=== PATIENT | female | born 1970 | race Caucasian/White ===

== ENCOUNTER 2020-02-14 09:28 | Outpatient (REF) | payer OTHER, SELFPAY | END 2020-02-14 09:29 | disposition home or self-care (01) | LOC: HO.HMGCLDS 09:28 | PROVIDERS: Visit Provider Internal Medicine | DX: Z20.828 Contact with and (suspected) exposure to other viral communicable diseases (principal) | CPT/HCPCS: C9803; U0003 ==

== ENCOUNTER → 2021-03-09 08:35 | Outpatient (BNVA) | payer OTHER, SELFPAY | PROVIDERS: PCP Internal Medicine; Referring Provider Internal Medicine; Visit Provider Nurse Practitioner Family | DX: Z12.11 Encounter for screening for malignant neoplasm of colon (principal) | CPT/HCPCS: 99202 ==

== ENCOUNTER 2021-03-10 08:22 | Outpatient (REF) | payer OTHER, SELFPAY ==
[2021-03-10 09:10] LABS: Hematocrit 40.1 % (37.0-47.0); Hemoglobin 13.1 g/dl (12.0-16.0); Mean Corpuscular HGB Conc 32.7 g/dl (31.0-35.0); Mean Corpuscular Hemoglobin 27.7 pg (27.0-33.0); Mean Corpuscular Volume 84.8 fL (80.0-98.0); Mean Platelet Volume 10.7 fL (9.4-12.3); Platelet Count 172 X10*3/uL (160-400); Red Blood Count 4.73 X10*6/uL (4.20-5.50); Red Cell Distribution Width 12.7 % (11.0-16.0); White Blood Count 3.2 X10*3/uL (4.8-10.8)
[2021-03-10 09:31] LABS: Alanine Aminotransferase 10 U/L (0-31); Albumin Level 4.2 g/dL (3.5-5.0); Alkaline Phosphatase 65 U/L (39-117); Anion Gap 11 (12-20); Aspartate Amino Transferase 13 U/L (5-31); Bilirubin Total 0.4 mg/dL (0.0-1.0); Blood Urea Nitrogen 12 mg/dL (9-16); Calcium 9.5 mg/dL (8.4-10.2); Carbon Dioxide 26 mmol/L (22-29); Chloride 108 mmol/L (96-108); Estimated Glomerular Filt Rate > 60; Glucose Random 104 mg/dL (60-115); Potassium 4.2 mmol/L (3.3-5.1); Sodium 141 mmol/L (135-145); Total Protein 6.8 g/dL (6.5-8.0)
== END 2021-03-10 08:23 | disposition home or self-care (01) ==
LOC: HO.LAB 08:22
PROVIDERS: PCP Internal Medicine; Visit Provider Nurse Practitioner Family
DX: Z12.11 Encounter for screening for malignant neoplasm of colon (principal)
CPT/HCPCS: 36415; 80053; 85027

== ENCOUNTER 2021-04-03 08:06 | Day surgery (SDC) | payer OTHER, SELFPAY ==
--- NOTE | 2021-04-02 09:50 | HO.ANESPROP2 ---
Documented by User: Vicki Zhu NP 04/04/21 15:09 HPI - Anesthesia Eval Consult details Narrative: 50yo F for Colonoscopy [facility] Past Medical History Medical History Hx of renal artery stenosis Family History Family History Father Parkinson disease Coronary artery disease Mother Breast CA Non Hodgkin's lymphoma Surgical History Surgical History Hx of section Hx of tubal ligation Social History Social History (Updated 03/09/21 @ 08:48 by Sindy Daly) Alcohol intake: current Alcohol intake frequency: holidays/special occasions only Patient Tobacco Use Status: Never used Tobacco Use of substances other than those prescribed or required for medical reasons: No Are you DNR?: No Advance Directives: No Advance Directives Information Provided: Yes Patient : No (tubal ligation) Meds Allergies Allergy/AdvReac Type Severity Reaction Status Date / Time morphine Allergy Unknown sensitivity Verified 03/09/21 08:46 Exam Exam Date and Time: April 02, 2021 0950 Pertinent Lab Results Pertinent Lab Results: Laboratory Tests 03/10/21 03/10/21 08:10 08:10 WBC 3.2 L Hgb 13.1 Hct 40.1 Plt Count 172 Sodium 141 Potassium 4.2 Chloride 108 Carbon Dioxide 26 BUN 12 Creatinine 0.79 Assessment and Plan Assessment Anesthesia Assessment: Chart Reviewed Documented by User: Serjio Hawkins MD 07/11/21 16:31 [facility] Past Medical History Medical History Hx of renal artery stenosis Functional capacity: independent ambulation Family History Family History Father Parkinson disease Coronary artery disease Mother Breast CA Non Hodgkin's lymphoma Family history of problems with anesthesia: No Surgical History Surgical History Hx of section Hx of tubal ligation History of Problems with Anesthesia: Yes (PONV) Social History Social History (Updated 03/09/21 @ 08:48 by Sindy Daly) Alcohol intake: current Alcohol intake frequency: holidays/special occasions only Patient Tobacco Use Status: Never used Tobacco Use of substances other than those prescribed or required for medical reasons: No Are you DNR?: No Advance Directives: No Advance Directives Information Provided: Yes Patient : No (tubal ligation) Meds Allergies Allergy/AdvReac Type Severity Reaction Status Date / Time morphine Allergy Unknown sensitivity Verified 03/09/21 08:46 Exam Airway Mallampati Class: II TM Dist: >3cm Neck ROM: Full Loose/Missing/Broken Teeth: Yes (Crowns and implants ) Heart: rrr Lungs: bl breath sounds Assessment and Plan Assessment Anesthesia Assessment: Anesthesia Plan Discussed Final Anesthetic Review Family History of Problems with Anesthesia: No History of Problems with Anesthesia: Yes (PONV) NPO: Yes ASA Class: II Final Preanesthetic Review: No Changes in Pt Med Stat, Meds/Allgs Chart Reviewed, Consent Obtained/Reviewed and Anes Risks/Benef Reviewed Patient Risk: Intermediate Procedure Risk: Intermediate Anesthetic Plan Anesthetic Plan: MAC: Disposition: Standard PACU
[2021-04-03 08:28] VITALS: BMI 23.3
[2021-04-03 08:32] VITALS: BP 145/85; PULSE 80; RESP 16; TEMP 36.3; O2SAT 100
[2021-04-03] MEDS: Lactated Ringers 1,000 ML 100 ML IVCONT (08:35)
--- NOTE | 2021-04-03 08:56 | MHC.SHP ---
Pre-Procedural Eval Section A Date of Service: 04/03/21 The patient is an INPATIENT: No Changes since office visit: Yes Patient answered all questions; No Cold of Flu in the past 2 weeks, No New Medical Problems and No Changes in Medication The History & Physical has been completed within 30 days and I have reviewed it.: Yes Section B Chief Complaint: Screening Allergies: Allergies Allergy/AdvReac Type Severity Reaction Status Date / Time morphine Allergy Unknown sensitivity Verified 03/09/21 08:46 Plan Diagnosis/Plan: Unchanged I have reviewed the history and physical and performed a pertinent physical examination on my patient. No changes have occurred unless specified.
--- NOTE | 2021-04-03 09:15 | PC.NURSE ---
Patient adds that she has had PONV in the past. Anesthesia aware
--- NOTE | 2021-04-03 09:16 | PM.OP ---
Brief Operative Note Date of Service: 04/03/21 Pre-op diagnosis: Colon cancer screening Post-op diagnosis: other (Colon polyp, diverticulosis) Procedure: COLONOSCOPY TILL CECUM WITH BIOPSY Consent: Indications for the procedure and potential complications of bleeding, perforation, reaction to medications and missed diagnosis were discussed with the patient and informed consent was obtained. Instrument: Olympus PCF H 190 L variable stiffness pediatric colonoscope Monitoring: Vital signs and clinical assessment, intermittent blood pressure monitoring, continuous EKG monitoring, Pulse oximetry and Carbon Dioxide monitoring were done throughout the procedure. Colon withdrawl time was 17 minutes. Procedure: The patient was placed in the left lateral decubitis position and pre-procedure medications were administered. After a digital rectal examination of the ano-rectum, the video colonoscope was inserted into the rectum and advanced through the colon to the cecum. The colonoscope was slowly withdrawn in a retrograde panoramic fashion and the colon mucosa was carefully examined including a retroflexed view of the rectum. Findings and interventions are described below. Procedure Difficulty: Colon was long andtortuous and there was some loop formation. No manuvers were required. Findings: Terminal Ileum: Not evaluated Cecum: Normal Ascending Colon: Normal Transverse Colon: Normal Descending Colon: Normal Sigmoid Colon: A 3-4 mm diminutive appearing polyp removed with a cold bx. Moderate diverticulosis Rectum: Normal Ano-rectum: Normal Colon preparation: Excellent Impression and Post Procedure Diagnosis: Colonoscopy Findings: One tiny polyp removed Moderate diverticulosis seen in the sigmoid colon Plan: Await pathology results Patient has an appointment on 04/17/20 in the GI Clinic with Evelina Greenberg NP. Repeat Colonoscopy interval based on path results - in 5 years if polyps are adenomatous and 10 years if polyps are hyperplastic. Above findings were reviewed with the patient and colon polyps and diverticulosis handouts were given in the discharge area Surgeon: Linsey David MD Anesthesia: MAC (Sara Pedraza CRNA) Was an Crowning Inspector used for this Procedure?: Yes Crowning Inspector: Stephanie Colvin Estimated blood loss (mL): 0 Pathology: other (A. Colon, sigmoid polyp) Condition: stable Disposition: PACU
[2021-04-03 09:56] VITALS: BP 118/64; PULSE 79; RESP 14; TEMP 36.4; O2SAT 96
[2021-04-03 10:11] VITALS: BP 125/67; PULSE 78; RESP 16; TEMP 36.4; O2SAT 98
--- NOTE | 2021-04-06 15:57 | W.PM.OPN ---
Operative Note Operative Note Date of Service: 04/03/21 Narrative: Pre-op diagnosis:?Colon cancer screening Post-op diagnosis:?other (Colon polyp, diverticulosis) Procedure:? COLONOSCOPY TILL CECUM WITH BIOPSY Consent: Indications for the procedure and potential complications of bleeding, perforation, reaction to medications and missed diagnosis were discussed with the patient and informed consent was obtained. Instrument: Olympus PCF H 190 L variable stiffness pediatric colonoscope Monitoring: Vital signs and clinical assessment, intermittent blood pressure monitoring, continuous EKG monitoring, Pulse oximetry and Carbon Dioxide monitoring were done throughout the procedure. Colon withdrawl time was 17 minutes. Procedure: The patient was placed in the left lateral decubitis position and pre-procedure medications were administered. After a digital rectal examination of the ano-rectum, the video colonoscope was inserted into the rectum and advanced through the colon to the cecum. The colonoscope was slowly withdrawn in a retrograde panoramic fashion and the colon mucosa was carefully examined including a retroflexed view of the rectum. Findings and interventions are described below. Procedure Difficulty: Colon was long and tortuous and there was some loop formation.? No manuvers were required. Findings: Terminal Ileum: Not evaluated Cecum:? Normal Ascending Colon:? Normal Transverse Colon:? Normal Descending Colon:? Normal Sigmoid Colon:? A 3-4 mm diminutive appearing polyp removed with a cold bx.? Moderate diverticulosis Rectum:? Normal Ano-rectum:? Normal Colon preparation: Excellent ? Impression and Post Procedure Diagnosis: Colonoscopy Findings: One tiny polyp removed Moderate diverticulosis seen in the sigmoid colon Plan: Await pathology results Patient has an appointment on 04/17/20 in the GI Clinic with Evelina Greenberg NP. Repeat Colonoscopy interval based on path results - in 5 years if polyps are adenomatous and 10 years if polyps are hyperplastic. Above findings were reviewed with the patient and colon polyps and diverticulosis handouts were given in the discharge area Surgeon:?Linsey David MD Anesthesia:?MAC (Sara Pedraza CRNA) Was an Technology Risk Intern used for this Procedure?:?Yes Technology Risk Intern:?Stephanie Colvin Estimated blood loss (mL):?0 Pathology:?other (A. Colon, sigmoid polyp) Condition:?stable Disposition:?PACU
--- NOTE | 2021-04-06 15:59 | W.PM.OPN ---
Operative Note Operative Note Date of Service: 04/03/21 Narrative: Pre-op diagnosis:?Colon cancer screening Post-op diagnosis:?other (Colon polyp, diverticulosis) Procedure:? COLONOSCOPY TILL CECUM WITH BIOPSY Consent: Indications for the procedure and potential complications of bleeding, perforation, reaction to medications and missed diagnosis were discussed with the patient and informed consent was obtained. Instrument: Olympus PCF H 190 L variable stiffness pediatric colonoscope Monitoring: Vital signs and clinical assessment, intermittent blood pressure monitoring, continuous EKG monitoring, Pulse oximetry and Carbon Dioxide monitoring were done throughout the procedure. Colon withdrawl time was 17 minutes. Procedure: The patient was placed in the left lateral decubitis position and pre-procedure medications were administered. After a digital rectal examination of the ano-rectum, the video colonoscope was inserted into the rectum and advanced through the colon to the cecum. The colonoscope was slowly withdrawn in a retrograde panoramic fashion and the colon mucosa was carefully examined including a retroflexed view of the rectum. Findings and interventions are described below. Procedure Difficulty: Colon was long andtortuous and there was some loop formation.? No manuvers were required. Findings: Terminal Ileum: Not evaluated Cecum:? Normal Ascending Colon:? Normal Transverse Colon:? Normal Descending Colon:? Normal Sigmoid Colon:? A 3-4 mm diminutive appearing polyp removed with a cold bx.? Moderate diverticulosis Rectum:? Normal Ano-rectum:? Normal Colon preparation: Excellent ? Impression and Post Procedure Diagnosis: Colonoscopy Findings: One tiny polyp removed Moderate diverticulosis seen in the sigmoid colon Plan: Await pathology results Patient has an appointment on 04/17/20 in the GI Clinic with Evelina Greenberg NP. Repeat Colonoscopy interval based on path results - in 5 years if polyps are adenomatous and 10 years if polyps are hyperplastic. Above findings were reviewed with the patient and colon polyps and diverticulosis handouts were given in the discharge area Surgeon:?Linsey David MD Anesthesia:?MAC (Sara Pedraza CRNA) Was an Airbrush Artist Technical used for this Procedure?:?Yes Airbrush Artist Technical:?Stephanie Colvin Estimated blood loss (mL):?0 Pathology:?other (A. Colon, sigmoid polyp) Condition:?stable Disposition:?PACU
== END 2021-04-03 10:37 | disposition home or self-care (01) ==
PROVIDERS: PCP Internal Medicine; Visit Provider Internal Medicine Gastroenterology
PROC: 0DJD8ZZ Inspection of Lower Intestinal Tract, Via Natural or Artificial Opening Endoscopic (ICD-10-PCS; CPT 45378; principal; 2021-04-03 09:20)
DX: Z12.11 Encounter for screening for malignant neoplasm of colon (principal); D12.5 Benign neoplasm of sigmoid colon; K57.30 Diverticulosis of large intestine without perforation or abscess without bleeding; Z88.8 Allergy status to other drugs, medicaments and biological substances
CPT/HCPCS: 45380; 88305; J2405; J3010

== ENCOUNTER 2022-12-10 13:18 | Outpatient (AMB) | payer OTHER, SELFPAY ==
--- NOTE | 2022-12-10 13:37 | A.OFFPC_ITS ---
Vital Signs 12/10/22 13:38 Height 5 ft 9 in Weight 167 lb BMI 24.7 BP 120/76 Blood Pressure Location Lt brachial Position Sitting Pulse 98 Pulse Source Pulse Oximeter Pulse Oximetry (%) 97 Oxygen Delivery Method Room Air Intake Visit Reasons: Left Foot Pain Intake Note: Pt is here today c/o Lt foot pain due to a bunion, also pt c/o pink eye Allergies morphine Allergy (Unknown, Verified 12/10/22 17:14) sensitivity Medication List - Last Reconciled 12/10/22 by Kaur Rubio MD magnesium 400 mg PO DAILY moxifloxacin 0.5% (Vigamox) 1 drp ophthalmic (eye) TID 5 days tamoxifen 20 mg PO DAILY Tobacco use date assessed: 12/10/22 Dental Screening Dental Screen Date: 12/10/22 Did you have a dental visit in the last 12 months?: Yes Did you have a dental problem in the last 6 months where you did not have access to dental care?: Yes Was dental information given to patient?: Patient has dentist HPI Left Foot Pain HPI Details 52-year-old lady here today complaining of 2 days history of requesting an eye irritation in her left eye, accompanied by increased hearing and eye redness . She has tried her erythromycin ointment which has not afforded much improvement. She is also has a painful on her left foot, which seems to be getting bigger. 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 Would like a referral to see Dr. Chantell Lozoya further evaluation management [facility] Medical History (Updated 12/10/22 @ 14:07 by Kaur Rubio MD) Acute conjunctivitis of left eye Bunion of left foot Hx of breast cancer Hx of strain of back Use of tamoxifen (Nolvadex) Dyslipidemia (high LDL; low HDL) Intraductal papilloma of breast Hx of renal artery stenosis Surgical History Hx of tubal ligation Hx of section Family History (Updated 12/10/22 @ 13:41 by Jennifer Naik CMA) Father Parkinson disease Coronary artery disease Mother Breast CA Non Hodgkin's lymphoma Social History Housing: House Alcohol intake: current Alcohol intake frequency: holidays/special occasions only Patient Tobacco Use Status: Never used Tobacco e-Cigarette/Vaping Use: Never Used Current occupational status: employed Cognitive needs: No Hearing needs: No Vision needs: Yes Questionnaire Thrive Questionnaire Date Thrive assessed: 04/30/22 AUDIT C Alcohol Use Questionnaire (AUDIT-C) 1. How often do you have a drink containing alcohol?: Monthly or less 2. How many drinks containing alcohol do you have on a typical day when you are drinking?: 1 or 2 3. How often do you have six or more drinks on one occasion?: Never Total Score: 1 CALVIN-7 AMB Questionnaire CALVIN-7 Date CALVIN - 7 assessed: 04/30/22 Source: Developed by Drs. Rupert Foy, Emilie Rajan, He Kang and colleagues, with an educational kelly from [employer]. Review of Systems Const Reports no additional complaints Eyes Reports as per HPI, Denies blurry vision and Denies diplopia ENT Reports no additional complaints Musc Reports as per HPI Skin/Breast Denies rash Neuro Reports no additional complaints Physical exam (Primary Care) Vital Signs: Last Vital Signs Pulse 98 12/10/22 13:38 BP 120/76 12/10/22 13:38 Pulse Ox 97 12/10/22 13:38 Oxygen Delivery Method Room Air 12/10/22 13:38 BMI result Body Mass Index 24.7 Tobacco/Smoking Status: Tobacco use Status Tobacco use date assessed 12/10/22 12/10/22 13:43 Patient Tobacco Use Status Never used Tobacco 12/10/22 13:43 e-Cigarette/Vaping Use Never Used 12/10/22 13:43 Thrive Assessment: Date of Thrive Assessment Date Thrive assessed 04/30/22 12/10/22 13:43 Const Other: Alert oriented x3, no acute distress noted, ambulatory normal gait HENMT Head: Yes normocephalic Ears: hearing grossly normal bilaterally and external ears normal General nose exam: Normal external nose present and No nasal discharge present Face and sinus: Yes sinuses nontender and Yes face symmetric Eyes General: appearance normal, both eyes and all related structures Alignment and Position: alignment normal Periorbital: periorbital findings normal Eyelids: Yes eyelid abnormality (Erythema injection in left lower lid) Conjunctivae: conjunctival abnormal left conjunctival injection (Medial aspect left eye) Sclerae: sclerae normal Pupils: Equal, round and reactive pupils present EOM: EOMs intact bilaterally Neck Neck: Yes full ROM and Yes no lymphadenopathy Skin General skin exam: no rashes or lesions noted Neuro Cranial nerves: Yes Equal, round and reactive pupils present Extrem Other: Large 1st MTP joint on left, erythematous and tender to palpation Assessment and Plan Assessment & Plan (1) Acute conjunctivitis of left eye: Code(s): H10.32 - Unspecified acute conjunctivitis, left eye Plan: Prescription sent for moxifloxacin eyedrops 0.5% to instill 1 drop to affected left eye 3 times a day for 5 days. Did on proper washing of ice, discard any contact lenses or eye makeup that has been used. (2) Bunion of left foot: Code(s): M21.612 - Bunion of left foot Plan: Referral ordered for her to see podiatry, Dr. Lozoya, per patient request Orders: Referrals Podiatry Referral M21.612 - Bunion of left foot Medications: New moxifloxacin 0.5% (Vigamox) 1 drp ophthalmic (eye) TID 5 days 3 mL 0RF Coding Level of Care Code Est Pt Level 3 (41387) Diagnoses Acute conjunctivitis of left eye H10.32 Bunion of left foot M21.612
[2022-12-10 13:38] VITALS: BP 120/76; PULSE 98; O2SAT 97; BMI 24.7
== END 2022-12-10 14:34 | disposition home or self-care (01) ==
PROVIDERS: PCP Internal Medicine; Visit Provider Internal Medicine
DX: H10.32 Unspecified acute conjunctivitis, left eye (principal); M21.612 Bunion of left foot
CPT/HCPCS: 99213

== ENCOUNTER 2024-02-02 08:54 | Outpatient (REF) | payer OTHER, SELFPAY ==
[2024-02-02 13:35] LABS: MANUAL DIFF FLAG NO
[2024-02-02 13:52] LABS: Basophils Percent Auto 0.4 % (0-2); Eosinophils Absolute Auto 0.1 X10*3/uL (0.0-0.4); Eosinophils Percent Auto 1.9 % (0-4); Hematocrit 41.5 % (37.0-47.0); Imm Gran Abs Auto 0.03 X10*3/uL (0.00-0.03); Imm Gran Pct Auto 0.6 % (0.0-0.4); Lymphocytes Absolute Auto 1.8 X10*3/uL (1.2-4.9); Mean Corpuscular HGB Conc 33.7 g/dl (31.0-35.0); Mean Corpuscular Hemoglobin 28.3 pg (27.0-33.0); Mean Platelet Volume 10.7 fL (9.4-12.3); Monocytes Absolute Auto 0.3 X10*3/uL (0.1-1.2); Monocytes Percent Auto 6.4 % (2-11); Neutrophils Absolute Auto 2.9 x10*3/uL (2.0-8.3); Neutrophils Percent Auto 56.7 % (45-73); Platelet Count 250 X10*3/uL (160-400); Red Blood Count 4.94 X10*6/uL (4.20-5.50); Red Cell Distribution Width 13.3 % (11.0-16.0); White Blood Count 5.2 X10*3/uL (4.8-10.8)
[2024-02-02 14:29] LABS: Alanine Aminotransferase 20 U/L (0-31); Albumin Level 4.5 g/dL (3.5-5.0); Alkaline Phosphatase 76 U/L (39-117); Anion Gap 13 (12-20); Aspartate Amino Transferase 20 U/L (5-31); Bilirubin Total 0.7 mg/dL (0.0-1.0); Blood Urea Nitrogen 14 mg/dL (9-16); Calcium 9.6 mg/dL (8.4-10.2); Carbon Dioxide 27 mmol/L (22-29); Chloride 104 mmol/L (96-108); Cholesterol 261 mg/dL (<200); Estimated Glomerular Filt Rate > 60; Glucose Fasting 107 mg/dL (60-99); HDL Cholesterol 52 mg/dL (>40); LDL Cholesterol Calculated 178 mg/dL (<100); Potassium 4.7 mmol/L (3.3-5.1); Sodium 139 mmol/L (135-145); Total Protein 7.6 g/dL (6.5-8.0); Triglycerides 159 mg/dL (<150)
[2024-02-02 14:33] LABS: TSH reflex Free T4 1.95 uIU/mL (0.32-4.0); Vitamin D 25-OH Total 39.4 ng/mL (>30)
== END 2024-02-02 08:55 | disposition home or self-care (01) ==
LOC: HO.HMGCLDS 08:54
PROVIDERS: PCP Internal Medicine; Visit Provider Internal Medicine
DX: Z00.00 Encounter for general adult medical examination without abnormal findings (principal); T78.3XXD Angioneurotic edema, subsequent encounter; X58.XXXD Exposure to other specified factors, subsequent encounter; E78.5 Hyperlipidemia, unspecified; Z71.89 Other specified counseling; Z86.000 Personal history of in-situ neoplasm of breast; Z92.3 Personal history of irradiation
CPT/HCPCS: 36415; 80053; 80061; 82306; 84443; 85025; 96127; 99497

== ENCOUNTER 2024-02-02 08:54 | Outpatient (AMB) | payer OTHER, SELFPAY ==
--- NOTE | 2024-02-02 08:56 | A.OFFPC_ITS ---
Vital Signs 02/02/24 09:01 Height 5 ft 9 in Weight 170 lb BMI 25.1 BP 118/82 Blood Pressure Location Lt brachial Position Sitting Pulse 81 Pulse Source Pulse Oximeter Pulse Oximetry (%) 99 Oxygen Delivery Method Room Air Intake Visit Reasons: ANNUAL Intake Note: Pt is here today for her PE: last mammogram 08/05/23, papsmear 04/02/23, colonoscopy 04/17/21 Allergies morphine Allergy (Unknown, Verified 02/02/24 09:04) sensitivity Medication List - Last Reconciled 02/02/24 by Kaur Rubio MD cetirizine (Zyrtec) 10 mg PO DAILY PRN magnesium 400 mg PO DAILY Tobacco use date assessed: 02/02/24 Dental Screening Dental Screen Date: 02/02/24 Did you have a dental visit in the last 12 months?: Yes Did you have a dental problem in the last 6 months where you did not have access to dental care?: No Was dental information given to patient?: Patient has dentist HPI ANNUAL HPI Details 53-year-old lady with 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 She has seasonal allergies, takes Zyrtec as needed. She goes to [facility] for her routine Pap and pelvic exam, last Pap smear was done 03/2023 with benign findings. Up-to-date with her screening mammogram done also at [facility] August 05, 2023, also showing benign results. Has history of adenomatous polyp of colon removed in [address] David, repeat due again in 2026. Has history of idiopathic angioedema, which involved mainly her lips and oral mucosa, seen by [facility] and evaluated also by Rheumatology, several years ago, Has not had any recent flare-up. [facility] Medical History (Updated 02/05/24 @ 04:43 by Kaur Rubio MD) History of therapeutic radiation History of ductal carcinoma in situ (DCIS) of left breast History of IVP History of fibromuscular dysplasia Idiopathic angioedema Tarsal tunnel syndrome of left side Posterior tibial tendinitis of left leg Hx of strain of back Use of tamoxifen (Nolvadex) Dyslipidemia (high LDL; low HDL) Hx of renal artery stenosis Surgical History (Updated 02/02/24 @ 09:42 by Kaur Rubio MD) H/O bilateral salpingectomy Hx of tubal ligation Hx of section Family History Father Parkinson disease Coronary artery disease Mother Breast CA Non Hodgkin's lymphoma Social History Housing: House Alcohol intake: current Alcohol intake frequency: holidays/special occasions only Patient Tobacco Use Status: Never used Tobacco e-Cigarette/Vaping Use: Never Used Current occupational status: employed Cognitive needs: No Hearing needs: No Vision needs: Yes Female Reproductive History Menstrual Date of last pap smear: 04/02/23 (Goes to [facility]) Date of Mammogram: 08/05/23 (Done at [facility]) Questionnaire PHQ-9 Over the last 2 weeks, how often have you been bothered by any of the following problems? 1. Little interest or pleasure in doing things: not at all 2. Feeling down, depressed, or hopeless: not at all 3. Trouble falling or staying asleep, or sleeping too much: not at all 4. Feeling tired or having little energy: not at all 5. Poor appetite or overeating: not at all 6. Feeling bad about yourself - or that you are a failure or have let yourself or your family down: not at all 7. Trouble concentrating on things, such as reading the newspaper or watching television: not at all 8. Moving or speaking so slowly that other people could have noticed. Or the opposite - being so fidgety or restless that you have been moving around a lot more than usual: not at all 9. Thoughts that you would be better off or of hurting yourself in some way: not at all Total score: 0 Depression Screening Interpretation: Negative Depression Screening Done: Yes 54457 - PHQ-9 Billing: Yes Source: Developed by Drs. Rupert Foy, Emilie Rajan, He Kang and colleagues, with an educational kelly from [employer] [address]. Thrive Questionnaire Date Thrive assessed: 11/04/24 I am a: Patient What is your living situation today?: I have a steady place to live Within the past 12 months, did the food you bought not last and you didn't have the money to get more?: Never true Within the past 12 months, did you worry whether your food would run out before you got money to buy more?: I choose not to answer this question Do you have trouble paying for medicines?: I choose not to answer this question Do you have trouble getting transportation to medical appointments?: I choose not to answer this question Do you have trouble paying your heating and electricity bill?: I choose not to answer this question Do you have trouble taking care of your child, family member or friend?: I choose not to answer this question Do you have trouble with day-to-day activities such as bathing, preparing meals, shopping, managing finances, etc.?: I choose not to answer this question Are you currently unemployed and looking for a job?: No Are you interested in more education?: No Please select the resources that you would like help with: None Currently or been in a relationship where the following occur: I choose not to answer THRIVE Score: 0 AUDIT C Alcohol Use Questionnaire (AUDIT-C) 1. How often do you have a drink containing alcohol?: 2-3 times a week 2. How many drinks containing alcohol do you have on a typical day when you are drinking?: 1 or 2 3. How often do you have six or more drinks on one occasion?: Never Total Score: 3 CALVIN-7 AMB Questionnaire CALVIN-7 Date CALVIN - 7 assessed: 02/02/24 Feeling nervous, anxious, or on edge: 0 = Not at all Not being able to stop or control worryin = Not at all Worrying too much about different things: 0 = Not at all Trouble relaxin = Not at all Being so restless that it is hard to sit still: 0 = Not at all Becoming easily annoyed or irritable: 0 = Not at all Feeling afraid as if something awful might happen: 0 = Not at all Total CALVIN-7 score (0-4 normal; 5-9 mild; 10-14 moderate; 15-21 severe): 0 Source: Developed by Drs. Rupert Foy, Emilie Rajan, He Kang and colleagues, with an educational kelly from [employer] [address]. CALVIN-7 Assessment Billing CALVIN-7 Assessment Tool: CALVIN-7 Assessment 69418 Review of Systems Const Reports no additional complaints Eyes Denies blurry vision and Denies diplopia ENT Reports no additional complaints Card Reports no additional complaints Resp Reports no additional complaints GI Reports no additional complaints Reports no additional complaints Musc Reports no additional complaints Skin/Breast Denies rash Neuro Reports no additional complaints Psych Reports no additional complaints Endo Reports no additional complaints Kody/Lymph Reports no additional complaints Aller/Immun Reports seasonal rhinorrhea Physical exam (Primary Care) Vital Signs: Last Vital Signs Pulse 81 02/02/24 09:01 BP 118/82 02/02/24 09:01 Pulse Ox 99 02/02/24 09:01 Oxygen Delivery Method Room Air 02/02/24 09:01 BMI result Body Mass Index 25.1 Tobacco/Smoking Status: Tobacco use Status Tobacco use date assessed 02/02/24 02/02/24 09:02 Patient Tobacco Use Status Never used Tobacco 02/02/24 08:58 e-Cigarette/Vaping Use Never Used 02/02/24 08:58 PHQ-9: PHQ-9 Score PHQ-9: Total score 0 02/02/24 09:08 Depression Screening Interpretation: Negative Thrive Assessment: Date of Thrive Assessment Date Thrive assessed 02/02/24 02/02/24 09:02 Currently or been in a relationship where the following occur: I choose not to answer Advance Care Planning discussion: Completed/Scanned Date of discussion: 02/02/24 Who was present: Patient Forms completed: Health Care Proxy Time spent: 16-45 minutes Actual minutes spent: 2 Const Other: Alert oriented x3, no acute distress noted, ambulatory normal gait Orientation/consciousness: patient oriented x3 HENMT Head: Yes normocephalic Ears: hearing grossly normal bilaterally and external ears normal General nose exam: Normal external nose present and No nasal discharge present Face and sinus: Yes sinuses nontender and Yes face symmetric Eyes General: appearance normal, both eyes and all related structures Alignment and Position: alignment normal Periorbital: periorbital findings normal Sclerae: sclerae normal EOM: EOMs intact bilaterally Neck Neck: Yes full ROM and Yes no lymphadenopathy Chest Breast/axilla palpation: normal palpation of the breasts Resp Auscultation: clear to auscultation bilaterally Cardio Rate: regular rate Rhythm: regular rhythm Heart sounds: S1 normal heart sound present and S2 normal heart sound present GI Palpation (GI): Soft to palpation, nontender, no guarding and no masses Auscultation: normal bowel sounds General: Yes no CVA tenderness and Yes deferred (Sees her own OBGYN) Back/Spine/Pelvis Back: no CVA tenderness and No back tenderness Skin General skin exam: no rashes or lesions noted Neuro General: patient oriented x3, gait normal, tone normal, Normal light touch and pain sensation, no focal motor deficits and CN's II-XI intact bilaterally Extrem General: Yes normal to inspection, Yes full ROM, Yes no joint enlargement, Yes no clubbing, cyanosis or edema and Yes normal gait Psych Appearance: grossly normal and well kempt Mental Status: mental status grossly normal Speech and movement: Normal speech and movement present Affect: normal affect Thought process: Normal thought process present Thought content: Normal thought content present Coding Level of Care Code Est Pt Prev Care 40-64y(78210) Diagnoses Annual visit for general adult medical examination with abnormal findings Z00.01 Idiopathic angioedema, subsequent encounter T78.3XXD Encounter type: subsequent encounter Advanced directives, counseling/discussion Z71.89 Additional Codes CALVIN-7 Assessment Billing - CALVIN-7 Assessment Tool: CALVIN-7 Assessment 60709 ([id number]) Vital Signs *Quality* - Advance Care Planning discussion: Completed/Scanned ([id number]) Vital Signs *Quality* - Time spent: 16-45 minutes ([id number]) Assessment & Plan Assessment & Plan (1) Annual visit for general adult medical examination with abnormal findings: Code(s): Z00.01 - Encounter for general adult medical examination with abnormal findings Plan: Will check appropriate labs. Continue with dental visit every 6 months and regular eye exams, at least every 2 years. Take adequate calcium in diet and vitamin-D 3 at 2000 IU per cap once a day, in addition to weight-bearing exercises to help maintain good muscle tone and weight control. Continue to do self-breast exam, and yearly mammogram, currently up-to-date. Goes to OBGYN at [facility] for her routine Pap and pelvic exam which is up-to-date. Up-to-date with her screening colonoscopy done by Dr. David due again in 2026 up-to-date with all her vaccinations but does not want to get a COVID booster (2) Idiopathic angioedema: Comment: Seen and evaluated by [facility]umatology and [facility], all tests came back negative Code(s): T78.3XXA - Angioneurotic edema, initial encounter Category: Medical Qualifiers: Encounter type: subsequent encounter Qualified Code(s): T78.3XXD - Angioneurotic edema, subsequent encounter Plan: Referred back for follow-up to [facility], currently taking cetirizine 10 mg once a day, advised to rotate her antihistamine use (3) Advanced directives, counseling/discussion: Code(s): Z71.89 - Other specified counseling Plan: Initiated the conversation about Advanced Directives. Advanced Directives help patients prepare for current and future decisions about their medical treatment and place of care. Discussed with patient that it is a process where a patients current condition and prognosis are reviewed, their wishes for information regarding their illness are elicited, and likely medical dilemmas are presented and options discussed. Healthcare proxy form completed today. The form can be amended as needed, reviewed yearly and make changes as needed Orders: Orders Vitamin D 25-OH Total 02/02/24 T78.3XXA - Angioneurotic edema, initial encounter, Z86.000 - Personal history of in-situ neoplasm of breast, Z90.79 - Acquired absence of other genital organ(s), Z92.3 - Personal history of irradiation, Z92.89 - Personal history of other medical treatment TSH reflex Free T4 02/02/24 T78.3XXA - Angioneurotic edema, initial encounter, Z86.000 - Personal history of in-situ neoplasm of breast, Z90.79 - Acquired absence of other genital organ(s), Z92.3 - Personal history of irradiation, Z92.89 - Personal history of other medical treatment Complete Blood Count Auto Diff 02/02/24 T78.3XXA - Angioneurotic edema, initial encounter, Z86.000 - Personal history of in-situ neoplasm of breast, Z90.79 - Acquired absence of other genital organ(s), Z92.3 - Personal history of irradiation, Z92.89 - Personal history of other medical treatment Comprehensive [place]. Panel Fast 02/02/24 T78.3XXA - Angioneurotic edema, initial encounter, Z86.000 - Personal history of in-situ neoplasm of breast, Z90.79 - Acquired absence of other genital organ(s), Z92.3 - Personal history of irradiation, Z92.89 - Personal history of other medical treatment Lipid Panel 02/02/24 T78.3XXA - Angioneurotic edema, initial encounter, Z86.000 - Personal history of in-situ neoplasm of breast, Z90.79 - Acquired absence of other genital organ(s), Z92.3 - Personal history of irradiation, Z92.89 - Personal history of other medical treatment Referrals Allergy & Immunology Referral T78.3XXA - Angioneurotic edema, initial encounter
[2024-02-02 09:01] VITALS: BP 118/82; PULSE 81; O2SAT 99; BMI 25.1
== END 2024-02-02 10:25 | disposition home or self-care (01) ==
LOC: HO.HMCC 08:55
PROVIDERS: PCP Internal Medicine; Visit Provider Internal Medicine
DX: Z00.01 Encounter for general adult medical examination with abnormal findings (principal); T78.3XXD Angioneurotic edema, subsequent encounter; Z71.89 Other specified counseling; Z00.00 Encounter for general adult medical examination without abnormal findings